=== PATIENT | female | born 1970 | race American Indian/Alaskan Native ===

== ENCOUNTER 2019-06-11 18:36 | Emergency (ER) | payer SELFPAY ==
[2019-06-11 19:59] LABS: Hematocrit 47.3 % (30.3-42.9); Hemoglobin 16.2 gm/dl (10.1-14.3); Mean Corpuscular HGB Conc 34 % (30-34); Mean Corpuscular Volume 101 fl (79-97); Platelet Count 217 K/mm3 (140-440); Red Blood Count 4.71 M/mm3 (3.65-5.03); Red Cell Distribution Width 13.4 % (13.2-15.2)
[2019-06-11 20:07] LABS: BUN/Creatinine Ratio 27; Blood Urea Nitrogen 19 mg/dL (7-17); Calcium 8.5 mg/dL (8.4-10.2); Hemolysis Index 13
[2019-06-11] MEDS ORDERED: NITROGLYCERIN 0.4 MG TAB SUBL SL PRN (20:30)
[2019-06-11] MEDS ORDERED: MORPHINE 4 MG/1 ML INJ IV ONE (20:30)
[2019-06-11] MEDS ORDERED: POTASSIUM CHLORIDE ER 20 MEQ TAB PO ONE (20:31)
[2019-06-11] MEDS ORDERED: FAMOTIDINE 20 MG/2 ML INJ IV ONE (20:31)
[2019-06-11] MEDS ORDERED: ACETAMINOPHEN 325 MG TAB PO STA (20:31)
--- NOTE | 2019-06-11 20:33 | XRay Report ---
CHEST 2 VIEWS INDICATION / CLINICAL INFORMATION: Chest Pain. COMPARISON: None available. FINDINGS: SUPPORT DEVICES: None. HEART / MEDIASTINUM: There is moderate enlargement of the cardiopericardial silhouette. Pulmonary vas culature is normal. The aorta is mildly tortuous without aneurysm. LUNGS / PLEURA: No significant pulmonary or pleural abnormality. No pneumothorax. ADDITIONAL FINDINGS: No significant additional findings. IMPRESSION: Moderate enlargement of the cardiopericardial silhouette without acute pulmonary disease. Signer Name: Clayton Santana MD Signed: 06/11/2019 8:28 PM Workstation Name: [id number]
--- NOTE | 2019-06-11 20:35 | Emergency Department Report ---
ED General Adult HPI - General Chief complaint: Chest Pain Stated complaint: CHEST PAIN PUI?: No Time Seen by Provider: 06/11/19 20:04 Source: patient, EMS ( EMS documentation not available at time of chart dictation ), RN notes reviewed Mode of arrival: Stretcher Limitations: No Limitations - History of Present Illness Initial comments: Patient is a 49-year-old female. She is not known to myself previously. She does not have a local primary care doctor. She endorses a history of hypertension, DVT in 2012, 2016, question congestive heart failure, denies fever, cough, travel, and recent coronavirus exposure. She presents to the ER with 1 week of constant central chest pressure. The pressure does not radiate to the back, arms or neck. There is no vomiting or diaphoresis. She denies travel, surgery, oral contraceptive use. She does not have new or different leg pain or leg swelling. She also has a history of peripheral artery disease. She is intermittently compliant with aspirin. No recent cardiac stress test that she is aware of. She also endorses suprapubic pressure, and occasional urinary discomfort. Her main complaint is chest discomfort, which does not have exacerbating or relieving factors that she is aware of. There is no recent cardiac stress test that she can recall. She did not want to come to the emergency room at of concern for the local coronavirus pandemic. -: days(s), week(s) Location: chest Radiation: non-radiation Severity scale (0 -10): 7 Consistency: other Improves with: other Worsens with: other Associated Symptoms: other - Related Data Previous Rx's Medication Instructions Recorded Last Taken Type Aspirin 325 mg PO ONCE #30 tablet 06/11/19 Unknown Rx Furosemide [Lasix] 20 mg PO QDAY #30 tablet 06/11/19 Unknown Rx Lisinopril [Zestril] 5 mg PO QDAY #30 tablet 06/11/19 Unknown Rx Nitroglycerin [Nitrostat] 0.4 mg SL Q5M PRN #30 tab 06/11/19 Unknown Rx Potassium Chloride [K-Dur] 20 meq PO QDAY #30 tablet 06/11/19 Unknown Rx Allergies Allergy/AdvReac Type Severity Reaction Status Date / Time No Known Drug Allergies Allergy Headache Verified 06/11/19 19:29 ED Review of Systems ROS: Stated complaint: CHEST PAIN Other details as noted in HPI Constitutional: denies: fever, malaise Eyes: denies: eye discharge ENT: denies: congestion Respiratory: denies: shortness of breath, SOB with exertion, wheezing Cardiovascular: chest pain. denies: syncope Gastrointestinal: denies: vomiting Genitourinary: as per HPI, dysuria Musculoskeletal: as per HPI Skin: as per HPI Neurological: as per HPI Psychiatric: as per HPI Hematological/Lymphatic: as per HPI ED Past Medical Hx - Social History Smoking Status: Former Smoker Substance Use Type: None - Medications Home Medications: Home Medications Medication Instructions Recorded Confirmed Last Taken Type Aspirin 325 mg PO ONCE #30 tablet 06/11/19 Unknown Rx Furosemide [Lasix] 20 mg PO QDAY #30 tablet 06/11/19 Unknown Rx Lisinopril [Zestril] 5 mg PO QDAY #30 tablet 06/11/19 Unknown Rx Nitroglycerin [Nitrostat] 0.4 mg SL Q5M PRN #30 tab 06/11/19 Unknown Rx Potassium Chloride [K-Dur] 20 meq PO QDAY #30 tablet 06/11/19 Unknown Rx ED Physical Exam - General Limitations: No Limitations General appearance: alert, in no apparent distress - Head Head exam: Present: atraumatic, normocephalic - Eye Eye exam: Present: normal appearance, EOMI. Absent: nystagmus - ENT ENT exam: Present: normal exam, normal orophraynx, mucous membranes moist, normal external ear exam - Neck Neck exam: Present: normal inspection, full ROM. Absent: tenderness, meningismus - Respiratory Respiratory exam: Present: normal lung sounds bilaterally. Absent: respiratory distress - Cardiovascular Cardiovascular Exam: Present: regular rate, normal rhythm, tachycardia, normal heart sounds. Absent: bradycardia, irregular rhythm, systolic murmur, diastolic murmur, rubs, gallop - GI/Abdominal GI/Abdominal exam: Present: soft. Absent: distended, tenderness, guarding, rebound, rigid, pulsatile mass - Extremities Exam Extremities exam: Present: normal inspection, full ROM, pedal edema ( 1+ edema noted in the bilateral lower extremity), other (2+ pulses noted in the bilateral upper and lower extremities. There is no palpable cord. negative Homans sign. Muscular compartments are soft. The pelvis is stable.). Absent: calf tenderness - Back Exam Back exam: Present: normal inspection, full ROM. Absent: tenderness, CVA tenderness (R), CVA tenderness (L), paraspinal tenderness, vertebral tenderness - Neurological Exam Neurological exam: Present: alert, oriented X3, normal gait, other (No facial droop. Tongue midline. Extraocular movements intact bilaterally. Facial sensation intact to light touch in V1, V2, V3 distribution bilaterally. 5 and a 5 strength in 4 extremities. Sensation intact to light touch in 4 extremities.). Absent: motor sensory deficit - Psychiatric Psychiatric exam: Present: normal affect, normal mood - Skin Skin exam: Present: warm, dry, intact, normal color. Absent: rash ED Course Vital Signs 06/11/19 06/11/19 06/11/19 19:23 19:30 19:35 Temperature 98.1 F Pulse Rate 101 H 102 H Respiratory 18 19 20 Rate Blood Pressure 137/105 134/103 Blood Pressure [Right] O2 Sat by Pulse 100 98 100 Oximetry 06/11/19 06/11/19 06/11/19 19:39 20:30 21:00 Temperature 98.1 F Pulse Rate 100 H 102 H 92 H Respiratory 20 26 H 20 Rate Blood Pressure 114/72 131/88 Blood Pressure 134/103 [Right] O2 Sat by Pulse 100 97 99 Oximetry 06/11/19 06/11/19 06/11/19 21:18 21:30 21:46 Temperature Pulse Rate 100 H 88 93 H Respiratory 20 18 Rate Blood Pressure 144/88 121/86 121/86 Blood Pressure [Right] O2 Sat by Pulse 98 98 Oximetry - Reevaluation(s) Reevaluation #1: 06/11/19 21:45 Differential diagnosis, including but not limited to: GERD, gastritis, hiatal hernia, pneumonia, acute coronary syndrome, pulmonary embolism, stable angina, unstable angina Assessment and plan: 49-year-old female with 1 week of constant chest pain, without vomiting, diaphoresis or exertional shortness of breath, EKG abnormal but unchanged x2, troponin negative x1 in the context of 1 week of symptoms. X- ray of the chest is reviewed and appreciated. CT scan of the chest is pending a t this time. Extensive discussion had with the patient. She indicates that she prefers to follow-up closely as an outpatient with local cardiology to complete a cardiac risk ratification, if no emergent condition is objectively identified while in the emergency room. I did offer the patient the option of admission to the hospital for the aforementioned risk stratification, versus close outpatient follow-up, and through shared decision making, we agreed to have the patient closely follow-up with an outpatient endless belt finisher to complete a cardiac re- stratification once her initial diagnostics have resulted, and if no emergent pathology is identified. At the moment, she is resting comfortably in her stretcher, and in no acute distress. In addition, I contacted our local endless belt finisher on-call, Dr. Huang, and we discussed the patient's history, physical, duration of symptoms, laboratory studies and EKG findings, and he indicated that outpatient work-up would be reasonable, assuming no emergent pathology is identified today. Reevaluation #2: 06/11/19 22:58 EKG is unchanged x2. Troponin is negative x2. CT scan of the chest shows no pulmonary embolism. Patient does not have crackles, rales, shortness of breath, or hypoxia. Patient will be discharged with aspirin, Lasix, lisinopril, we have reiterated instructions to closely follow-up with outpatient cardiology. She indicates that she is reliable to do so. Return precautions are reviewed Incidental nonemergent laboratory abnormalities can be followed up by an outpatient physician. 06/11/19 23:09 ED Medical Decision Making - Lab Data Result diagrams: 06/11/19 19:35 06/11/19 19:35 Vital Signs 06/11/19 06/11/19 06/11/19 19:23 19:30 19:35 Temperature 98.1 F Pulse Rate 101 H 102 H Respiratory 18 19 20 Rate Blood Pressure 137/105 134/103 Blood Pressure [Right] O2 Sat by Pulse 100 98 100 Oximetry 06/11/19 06/11/19 06/11/19 19:39 20:30 21:00 Temperature 98.1 F Pulse Rate 100 H 102 H 92 H Respiratory 20 26 H 20 Rate Blood Pressure 114/72 131/88 Blood Pressure 134/103 [Right] O2 Sat by Pulse 100 97 99 Oximetry 06/11/19 06/11/19 21:18 21:30 Temperature Pulse Rate 100 H 88 Respiratory 20 Rate Blood Pressure 144/88 121/86 Blood Pressure [Right] O2 Sat by Pulse 98 Oximetry Lab Results 06/11/19 06/11/19 06/11/19 Range/Units 19:35 19:35 19:35 WBC 3.0 L (4.5-11.0) K/mm3 RBC 4.71 (3.65-5.03) M/mm3 Hgb 16.2 H (10.1-14.3) gm/dl Hct 47.3 H (30.3-42.9) % MCV 101 H (79-97) fl MCH 35 H (28-32) pg MCHC 34 (30-34) % RDW 13.4 (13.2-15.2) % Plt Count 217 (140-440) K/mm3 Add Manual Diff Complete Total Counted 100 Seg Neutrophils % Clinical Research Administrator Seg Neuts % (Manual) 34.0 L (40.0-70.0) % Band Neutrophils % 0 % Lymphocytes % (Manual) 53.0 H (13.4-35.0) % Reactive Lymphs % (Man) 0 % Monocytes % (Manual) 9.0 H (0.0-7.3) % Eosinophils % (Manual) 2.0 (0.0-4.3) % Basophils % (Manual) 2.0 H (0.0-1.8) % Metamyelocytes % 0 % Myelocytes % 0 % Promyelocytes % 0 % Blast Cells % 0 % Nucleated RBC % Not Reportable Seg Neutrophils # Man 1.0 L (1.8-7.7) K/mm3 Band Neutrophils # 0.0 K/mm3 Lymphocytes # (Manual) 1.6 (1.2-5.4) K/mm3 Abs React Lymphs (Man) 0.0 K/mm3 Monocytes # (Manual) 0.3 (0.0-0.8) K/mm3 Eosinophils # (Manual) 0.1 (0.0-0.4) K/mm3 Basophils # (Manual) 0.1 (0.0-0.1) K/mm3 Metamyelocytes # 0.0 K/mm3 Myelocytes # 0.0 K/mm3 Promyelocytes # 0.0 K/mm3 Blast Cells # 0.0 K/mm3 WBC Morphology Not Reportable Hypersegmented Neuts Not Reportable Hyposegmented Neuts Not Reportable Hypogranular Neuts Not Reportable Smudge Cells Not Reportable Toxic Granulation Not Reportable Toxic Vacuolation Not Reportable Dohle Bodies Not Reportable Pelger-Huet Anomaly Not Reportable Jihan Rods Not Reportable Platelet Estimate Not Reportable Clumped Platelets Not Reportable Plt Clumps, EDTA Not Reportable Large Platelets Not Reportable Giant Platelets Not Reportable Platelet Satelliting Not Reportable Plt Morphology Comment Not Reportable RBC Morphology Normal Dimorphic RBCs Not Reportable Polychromasia Not Reportable Hypochromasia Not Reportable Poikilocytosis Not Reportable Anisocytosis Not Reportable Microcytosis Not Reportable Macrocytosis Not Reportable Spherocytes Not Reportable Pappenheimer Bodies Not Reportable Sickle Cells Not Reportable Target Cells Not Reportable Tear Drop Cells Not Reportable Ovalocytes Not Reportable Helmet Cells Not Reportable [place] Bodies Not Reportable [place] Rings Not Reportable [place] Cells Not Reportable Bite Cells Not Reportable Crenated Cell Not Reportable Elliptocytes Not Reportable Acanthocytes (Spur) Not Reportable Rouleaux Not Reportable Hemoglobin C Crystals Not Reportable Schistocytes Not Reportable Malaria parasites Not Reportable Bob Bodies Not Reportable Hem Pathologist Commnt No PT (12.2-14.9) Sec. INR (0.87-1.13) D-Dimer (0-234) ng/mlDDU Sodium 138 (137-145) mmol/L Potassium 3.3 L (3.6-5.0) mmol/L Chloride 98.6 (98-107) mmol/L Carbon Dioxide 22 (22-30) mmol/L Anion Gap 21 mmol/L BUN 19 H (7-17) mg/dL Creatinine 0.7 (0.7-1.2) mg/dL Estimated GFR > 60 ml/min BUN/Creatinine Ratio 27 % Glucose 104 H (65-100) mg/dL Calcium 8.5 (8.4-10.2) mg/dL Magnesium (1.7-2.3) mg/dL Total Creatine Kinase (30-135) units/L Troponin T < 0.010 (0.00-0.029) ng/mL Urine Color (Yellow) Urine Turbidity (Clear) Urine pH (5.0-7.0) Ur Specific [place] (1.003-1.030) Urine Protein (Negative) mg/dL Urine Glucose (UA) (Negative) mg/dL Urine Ketones (Negative) mg/dL Urine Blood (Negative) Urine Nitrite (Negative) Urine Bilirubin (Negative) Urine Urobilinogen (<2.0) mg/dL Ur Leukocyte Esterase (Negative) Urine WBC (Auto) (0.0-6.0) /HPF Urine RBC (Auto) (0.0-6.0) /HPF U Epithel Cells (Auto) (0-13.0) /HPF 06/11/19 06/11/19 06/11/19 Range/Units 20:37 20:37 20:38 WBC (4.5-11.0) K/mm3 RBC (3.65-5.03) M/mm3 Hgb (10.1-14.3) gm/dl Hct (30.3-42.9) % MCV (79-97) fl MCH (28-32) pg MCHC (30-34) % RDW (13.2-15.2) % Plt Count (140-440) K/mm3 Add Manual Diff Total Counted Seg Neutrophils % Seg Neuts % (Manual) (40.0-70.0) % Band Neutrophils % % Lymphocytes % (Manual) (13.4-35.0) % Reactive Lymphs % (Man) % Monocytes % (Manual) (0.0-7.3) % Eosinophils % (Manual) (0.0-4.3) % Basophils % (Manual) (0.0-1.8) % Metamyelocytes % % Myelocytes % % Promyelocytes % % Blast Cells % % Nucleated RBC % Seg Neutrophils # Man (1.8-7.7) K/mm3 Band Neutrophils # K/mm3 Lymphocytes # (Manual) (1.2-5.4) K/mm3 Abs React Lymphs (Man) K/mm3 Monocytes # (Manual) (0.0-0.8) K/mm3 Eosinophils # (Manual) (0.0-0.4) K/mm3 Basophils # (Manual) (0.0-0.1) K/mm3 Metamyelocytes # K/mm3 Myelocytes # K/mm3 Promyelocytes # K/mm3 Blast Cells # K/mm3 WBC Morphology Hypersegmented Neuts Hyposegmented Neuts Hypogranular Neuts Smudge Cells Toxic Granulation Toxic Vacuolation Dohle Bodies Pelger-Huet Anomaly Jihan Rods Platelet Estimate Clumped Platelets Plt Clumps, EDTA Large Platelets Giant Platelets Platelet Satelliting Plt Morphology Comment RBC Morphology Dimorphic RBCs Polychromasia Hypochromasia Poikilocytosis Anisocytosis Microcytosis Macrocytosis Spherocytes Pappenheimer Bodies Sickle Cells Target Cells Tear Drop Cells Ovalocytes Helmet Cells [place] Bodies [place] Rings [place] Cells Bite Cells Crenated Cell Elliptocytes Acanthocytes (Spur) Rouleaux Hemoglobin C Crystals Schistocytes Malaria parasites Bob Bodies Hem Pathologist Commnt PT 14.1 (12.2-14.9) Sec. INR 1.08 (0.87-1.13) D-Dimer 367.44 H (0-234) ng/mlDDU Sodium (137-145) mmol/L Potassium (3.6-5.0) mmol/L Chloride (98-107) mmol/L Carbon Dioxide (22-30) mmol/L Anion Gap mmol/L BUN (7-17) mg/dL Creatinine (0.7-1.2) mg/dL Estimated GFR ml/min BUN/Creatinine Ratio % Glucose (65-100) mg/dL Calcium (8.4-10.2) mg/dL Magnesium 1.80 (1.7-2.3) mg/dL Total Creatine Kinase 156 H (30-135) units/L Troponin T < 0.010 (0.00-0.029) ng/mL Urine Color Yellow (Yellow) Urine Turbidity Clear (Clear) Urine pH 6.0 (5.0-7.0) Ur Specific [place] 1.005 (1.003-1.030) Urine Protein 100 mg/dl (Negative) mg/dL Urine Glucose (UA) Neg (Negative) mg/dL Urine Ketones Neg (Negative) mg/dL Urine Blood Sm (Negative) Urine Nitrite Neg (Negative) Urine Bilirubin Neg (Negative) Urine Urobilinogen < 2.0 (<2.0) mg/dL Ur Leukocyte Esterase Neg (Negative) Urine WBC (Auto) 1.0 (0.0-6.0) /HPF Urine RBC (Auto) 1.0 (0.0-6.0) /HPF U Epithel Cells (Auto) 1.0 (0-13.0) /HPF - EKG Data -: EKG Interpreted by Ct EKG shows normal: sinus rhythm Rate: normal - EKG Data When compared to previous EKG there are: previous EKG unavailable 06/11/19 21:45 EKG #1 shows a sinus rhythm, 98 bpm, there is a left axis deviation, there is a left anterior fascicular block, there is atrial enlargement, there is left ventricular hypertrophy, QTC prolonged, [place] interval within normal limits, T wave inversions aVL, there is no prior for comparison, the EKG is not a STEMI EKG #2 appears to be unchanged from prior. - Radiology Data Radiology results: report reviewed, image reviewed Print Report Referring Physician: MIREILLE MOCTEZUMA Patient Name: JOE TINEO Date of : 1970 Sex: Female Report Date: 2019-06-11 Report Status: Finalized Findings [address] [address] XRay Report Signed Patient: JOE TINEO MR#: [id number] : 1970 Acct:[id number] Age/Sex: 49 / F ADM Date: 06/11/19 Loc: ED Attending Dr: Ordering Physician: MIREILLE MOCTEZUMA MD Date of Service: 06/11/19 Procedure(s): XR chest routine 2V Accession Number(s): [id number] cc: MIREILLE MOCTEZUMA MD Fluoro Time In Minutes: CHEST 2 VIEWS INDICATION / CLINICAL INFORMATION: Chest Pain. COMPARISON: None available. FINDINGS: SUPPORT DEVICES: None. HEART / MEDIASTINUM: There is moderate enlargement of the cardiopericardial silhouette. Pulmonary vasculature is normal. The aorta is mildly tortuous without aneurysm. LUNGS / PLEURA: No significant pulmonary or pleural abnormality. No pneum othorax. ADDITIONAL FINDINGS: No significant additional findings. IMPRESSION: Moderate enlargement of the cardiopericardial silhouette without acute pulmonary disease. Signer Name: Clayton Santana MD Signed: 06/11/2019 8:28 PM Workstation Name: [id number] Transcribed By: RT Dictated By: Clayton Santana MD Electronically Authenticated By: Clayton Santana MD Signed Date/Time: 06/11/192027 DD/ 26 TD/TT: Print Report Referring Physician: MIREILLE MOCTEZUMA Patient Name: JOE TINEO Date of : 1970 Sex: Female Report Date: 2019-06-11 Report Status: Finalized Findings [address] [place] [address] Cat Scan Report Signed Patient: JOE TINEO MR#: [id number] : 1970 Acct:[id number] Age/Sex: 49 / F ADM Date: 06/11/19 Loc: ED Attending Dr: Ordering Physician: MIREILLE MOCTEZUMA MD Date of Service: 06/11/19 Procedure(s): CT angio chest Accession Number(s): [id number] cc: MIREILLE MOCTEZUMA MD CT ANGIOGRAPHY OF THE CHEST WITH INTRAVENOUS CONTRAST AND MULTIPLANAR MIP RECONSTRUCTIONS INDICATION / CLINICAL INFORMATION: Chest pains, Hx of 2 DVTs, Tachycardia. TECHNIQUE: Axial CT images were obtained after injection of 100 cc Omnipaque 350 IV contrast using CTA protocol. 3 plane MIP / 3D reconstructions were produced. All CT scans at this location are performed using CT dose reduction for ALARA by means of automated exposure control. COMPARISON: None available. FINDINGS: There is good opacification of the pulmonary arterial system bilaterally without intraluminal filling defect to suggest acute PTE. The thoracic aorta is normal in caliber without evidence of dissection. There is a stent in the LAD. There is moderate cardiomegaly Interstitial lung markings are slightly increased, best seen in the right lung base. No focal consolidation. No evidence of effusion or adenopathy. There is reflux of contrast into the IVC and hepatic veins. Cholelithiasis without evidence of gallbladder wall thickening. Mild spondylosis. IMPRESSION: 1. No evidence of acute PTE. 2. Cardiomegaly with probable minimal interstitial edema. Reflux of contrast into the IVC and hepatic veins is characteristic of right heart failure. 3. Cholelithiasis. Signer Name: Clayton Santana MD Signed: 06/11/2019 10:43 PM Workstation Name: [id number] Transcribed By: RT Dictated By: Clayton Santana MD Electronically Authenticated By: Clayton Santana MD Signed Date/Time: 06/11/192242 DD/ 37 TD/TT: Critical care attestation.: If time is entered above; I have spent that time in minutes in the direct care of this critically ill patient, excluding procedure time. ED Disposition Clinical Impression: History of chest pain, Lower extremity edema Disposition: TO HOME OR SELFCARE Is pt being admited?: No Does the pt Need Aspirin: No Condition: Stable Instructions: Chest Pain (ED), Leg Edema (ED) Additional Instructions: Do not take metformin medication for the next 2 days, if patient takes this medication. Take the prescribed medications as needed and directed. Follow-up within 2 to 3 days with an outpatient endless belt finisher. Return to the emergency room right away with new, worsened or different s ymptoms, or symptoms not present on the initial emergency room evaluation. The patient should also follow-up with a primary care doctor within the next 10 to 14 days. Prescriptions: Aspirin 325 mg PO ONCE #30 tablet Potassium Chloride [K-Dur] 20 meq PO QDAY #30 tablet Furosemide [Lasix] 20 mg PO QDAY #30 tablet Nitroglycerin [Nitrostat] 0.4 mg SL Q5M PRN #30 tab PRN Reason: Chest Pain Lisinopril [Zestril] 5 mg PO QDAY #30 tablet Referrals: XAVIER LANE MD [Staff Physician] - 3-5 Days (cardiology) REBECCA FAIRCHILD MD [Staff Physician] - 3-5 Days (cardiology) WARREN MURRELL MD [Staff Physician] - 3-5 Days (primary care)
[2019-06-11 20:55] LABS: Bilirubin,Urine NEG (Negative); Blood,Urine SM (Negative); Color,Urine Yellow (Yellow); Urobilinogen,Urine < 2.0 mg/dL (<2.0)
[2019-06-11] MEDS ORDERED: POTASSIUM CHLORIDE 10 MEQ 10 MEQ/100 ML BAG IV SCH (21:00)
[2019-06-11 21:02] LABS: INR 1.08 (0.87-1.13)
[2019-06-11] MEDS ORDERED: SODIUM CHLORIDE 0.9% 1000 ML 1,000 ML ONE (21:24)
[2019-06-11 21:25] LABS: RBC Morphology Normal; Total Cells Counted 100
--- NOTE | 2019-06-11 22:48 | Cat Scan Report ---
CT ANGIOGRAPHY OF THE CHEST WITH INTRAVENOUS CONTRAST AND MULTIPLANAR MIP RECONSTRUCTIONS INDICATION / CLINICAL INFORMATION: Chest pains, Hx of 2 DVTs, Tachycardia. TECHNIQUE: Axial CT images were obtained after injection of 100 cc Omnipaque 350 IV contrast using CTA protocol. 3 plane MIP / 3D reconstructions were produced. All CT scans at this location are performed using CT dose reduction for ALARA by means of automated exposure control. COMPARISON: None available. FINDINGS: There is good opacification of the pulmonary arterial system bilaterally without intraluminal filling defect to suggest acute PTE. The thoracic aorta is normal in caliber without evidence of dissection. There is a stent in the LAD. There is moderate cardiomegaly Interstitial lung markings are slightly increased, best seen in the right lung base. No focal consoli dation. No evidence of effusion or adenopathy. There is reflux of contrast into the IVC and hepatic veins. Cholelithiasis without evidence of gallbl adder wall thickening. Mild spondylosis. IMPRESSION: 1. No evidence of acute PTE. 2. Cardiomegaly with probable minimal interstitial edema. Reflux of contrast into the IVC and hepatic veins is characteristic of right heart failure. 3. Cholelithiasis. Signer Name: Clayton Santana MD Signed: 06/11/2019 10:43 PM Workstation Name: [id number]
[2019-06-11 23:36] VITALS: BP 127/80
== END 2019-06-11 23:37 | disposition home or self-care (01) ==
LOC: ED 18:36
DX: R07.89 Other chest pain (principal); R60.0 Localized edema; Z87.891 Personal history of nicotine dependence
CPT/HCPCS: 36415; 71046; 71275; 80048; 81001; 82550; 83735; 84484; 85007; 85025; 85379; 85610; 87086; 93005; 96374; 96375; 99285; J2270; J3480; J7030; Q9967